=== PATIENT | female | born 1995 | race Caucasian/White ===

== ENCOUNTER 2019-08-25 15:23 | Emergency (ER) | payer OTHER ==
[2019-08-26 15:04] LABS: SARS-CoV-2 MS2 Positive; SARS-CoV-2 N Gene Positive; SARS-CoV-2 S Gene Positive; SARS-CoV-2 orf1ab Positive
== END 2019-08-25 16:10 | disposition home or self-care (01) ==
LOC: ERS 15:23
DX: U07.1 COVID-19 (principal)
CPT/HCPCS: 87635; 99283; U0003